=== PATIENT | male | born 1985 | race Hispanic/Latino ===

== ENCOUNTER 2019-09-10 10:48 | Emergency (ER) | payer SELFPAY ==
[2019-09-10] MEDS ORDERED: Dexamethasone 10 MG/ML VIAL ONE (11:52)
[2019-09-10] MEDS ORDERED: Dexamethasone 4 mg/ml Vial ONE (11:54)
== END 2019-09-10 12:10 | disposition home or self-care (01) ==
LOC: ERS 10:48
DX: K04.7 Periapical abscess without sinus (principal); F17.210 Nicotine dependence, cigarettes, uncomplicated
CPT/HCPCS: 99282; J1100

== ENCOUNTER 2020-05-07 11:06 | Emergency (ER) | payer SELFPAY ==
[2020-05-07 22:15] LABS: SARS-CoV-2 PCR by NAA Not Detected (NotDetected)
== END 2020-05-07 11:31 | disposition home or self-care (01) ==
LOC: ERS 11:06
DX: R51.9 Headache, unspecified (principal); R09.81 Nasal congestion; Z20.822 Contact with and (suspected) exposure to COVID-19; F17.210 Nicotine dependence, cigarettes, uncomplicated
CPT/HCPCS: 87635; 99283; U0003; U0005

== ENCOUNTER 2021-05-06 21:43 | Emergency (ER) | payer SELFPAY ==
[2021-05-06] MEDS ORDERED: Ketorolac Tromethamine 30 MG/ML VIAL ONE (22:26)
[2021-05-07 15:38] LABS: SARS-CoV-2 PCR by NAA DETECTED (NotDetected)
== END 2021-05-06 22:50 | disposition home or self-care (01) ==
LOC: ERS 21:43
DX: U07.1 COVID-19 (principal)
CPT/HCPCS: 71045; 96372; J1885; U0003; U0005